=== PATIENT | male | born 2000 | race Caucasian/White ===

== ENCOUNTER → 2022-04-02 12:28 | Outpatient (CLI) | payer OTHER, SELFPAY ==
[2022-04-02 13:29] LABS: COVID19 -Nasal RAPID Negative (Negative)
== END ==
PROVIDERS: Referring Provider Orthopaedic Surgery Orthopaedic Surgery of the Spine; Visit Provider Orthopaedic Surgery Orthopaedic Surgery of the Spine
DX: Z20.822 Contact with and (suspected) exposure to COVID-19 (principal)
CPT/HCPCS: 87635; C9803

== ENCOUNTER 2022-04-04 11:48 | Inpatient (IN) | payer OTHER, SELFPAY ==
[2022-04-02 09:28] VITALS: BMI 28.1
[2022-04-04] VITALS (8 sets, daily range): BP systolic 111–128; BP diastolic 67–90; PULSE 60–93; RESP 8–20; TEMP 36.3–36.6; O2SAT 97–100; BMI 28.1
--- NOTE | 2022-04-04 | DI.RAD.S_ITS ---
PROCEDURE: XR LUMBAR SPINE 2-3V INDICATIONS: L5-S1 MICRO DISCECTOMY TECHNIQUE: Two intraoperative fluoroscopic views of the lumbar spine were acquired. COMPARISON: None. FINDINGS/IMPRESSION: 1. Two intraoperative fluoroscopic images demonstrate a microdiscectomy and disco projecting over the L5-S1 in keeping with the provided history of L5-S1 microdiscectomy. Dictated by: Hugh Garzon M.D. on 04/06/2022 at 14:40 Approved by: Hugh Garzon M.D. on 04/06/2022 at 14:42
[2022-04-04] MEDS: LACTATED RINGERS 1,000 ML 42 ML IV ×2 (12:32→14:33)
--- NOTE | 2022-04-04 12:54 | PM.PREOP ---
Pre-operative Note COVID-19 COVID-19 status: Negative Result date/Date tested (Pos, Neg/Pending): 04/03/22 Criteria for continued procedure: Expected advancement of disease process, Possibility delay results in more complex future surgery or treatment, Increased loss of function, Continuing or worsening of significant or severe pain, Deterioration of the patient's condition or overall health and Delay expected to result in less-positive ultimate med/surg outcome Interval Note History & Physical reviewed/Exam performed by Physician: Yes Changes to H&P: No
[2022-04-04] MEDS: CEFAZOLIN 2 GM/100 ML PREMIX 100 ML IV (13:35)
[2022-04-04] MEDS: BUPIVACAINE 0.25% (PF) 30 ML, EPINEPHrine 0.15 MG INJ (13:55)
--- NOTE | 2022-04-04 14:01 | SUR.OPER ---
Prone on spine table, head in foam head support, padded chest and pelvic supports, gel pad at knees, lower legs supported by pillows; nipples, genitalia and toes free of pressure, arms secured on foam padded arm boards at <90 degrees abduction. Tape over blanket at thigh secured to table.
--- NOTE | 2022-04-04 14:34 | PM.OP.1 ---
Operative Date/Time/Diagnoses Date of procedure: 04/04/22 Time of procedure: 13:00 Pre-op diagnosis: 1. L4-5, L5-S1 disc herniation 2. lumbar radiculopathy Post-op diagnosis: same Procedure & Clinicians Procedure: 1. L4-5, L5-S1 left microdiscectomy 2. Utilization of microsurgical technique and operating microscope Same procedure as scheduled: Yes Indications: Patient has been having chronic back pain and worsening lumbar radiculopathy. Patient failed multiple conservative management with worsening pain weakness and numbness in her lower extremity. Patient has been having difficulty performing activity of daily living. After discussing risks benefits of treatment options, patient elected proceed with surgery. Surgeon: John Barry Wire Spiral Binder: Sapna Menchaca Click Yes if Unassisted: No Anesthesia Type: General Operative Notes Closure Type: primary Specimen(s): none sent Estimated Blood Loss (mL): 5 Blood products transfused: none Procedure in detail: Patient was seen in the preoperative area. Risks and benefits of the surgery was discussed with the patient. Informed consent was obtained from the patient and placed in the chart. Surgical site was marked. Patient was taken to the operative room. General anesthesia was administered. Prophylactic antibiotic was given to the patient less than 30 min before the incision was made. Patient was placed into a prone position on the Kevin table. Patient's back was then prepped and draped in the sterile fashion. Time-out was performed at this time. Using AP and lateral C-arm imaging the interval between L5-S1 was identified and marked on patient's back. A 1 inch incision 1 in from midline was made on the left side. The fascia was incised in line with skin incision. Globus MARS retractors was placed inside the incision and docked onto the L5 lamina. Using microsurgical technique and operating microscope, a L5 laminotomy was performed using a Kerrison rongeur. Liagamentum flavum was resected at the site of the laminotomy. The disc space at L5-S1 was identified. Microdiscectomy was performed by incising the annulus with #11 blade. Microcurettes and pituitary was used to removed herniated disc fragments of disc from the epidural space. Patient's disc herniation was found to be partially calcified indicating a chronic nature of the disc herniation. Due to the partial calcification of the disc, partial resection was performed for the disc herniation due to the location and nature of the disc herniation. After the microdiskectomy was completed, the area medial lateral superior and inferior to the area of the microdiskectomy was inspected and explored using a micro curette. No other impinging structure was identified. The mars retractor was then redirected over the L4-5 level. Using microsurgical technique and operating microscope a left L4-5 microdiskectomy was performed by using the Kerrison rongeur. The lateral recess was decompressed using the Kerrison as well as a micro curette. The wound was then irrigated with sterile normal saline. 40 mg Depo-Medrol was placed into the epidural space. The deep fascia was closed with 1-0 Vicryl. The subcutaneous tissue was closed with 2-0 Vicryl. The skin was closed with skin kristine. Patient tolerated the procedure well. There were no complications. Patient was transferred recovery room in stable condition. Complications: none Post-operative Condition: stable Disposition: PACU Plan for aftercare: Discharge to home
[2022-04-04] MEDS: OXYCODONE/ACETAMINOPHEN 5/325 TABLET 1 TAB PO (15:15)
== END 2022-04-04 15:56 | disposition home or self-care (01) | DRG 520 ==
PROVIDERS: Admitting Provider Orthopaedic Surgery Orthopaedic Surgery of the Spine; Referring Provider Orthopaedic Surgery Orthopaedic Surgery of the Spine; Visit Provider Orthopaedic Surgery Orthopaedic Surgery of the Spine
PROC: 0SB20ZZ Excision of Lumbar Vertebral Disc, Open Approach (ICD-10-PCS; principal; 2022-04-04 13:45)
DX: M51.16 Intervertebral disc disorders with radiculopathy, lumbar region (principal); M51.27 Other intervertebral disc displacement, lumbosacral region; Z20.822 Contact with and (suspected) exposure to COVID-19
CPT/HCPCS: 72100; 76000; J0171; J0690; J2250; J2704; J2920; J3010

== ENCOUNTER → 2023-05-02 13:42 | Outpatient (CLI) | payer OTHER, SELFPAY ==
--- NOTE | 2023-05-02 | DI.ECHO.S_ITS ---
[facility] +---------+ : : [address] : [place] : : : : [id number] : : : : Phone: [phone]---------+ Echocardiogram Report + + :Name: FAROOQ HUMPHREYS Study Date: 05/02/2023 Height: 68 in : :[facility] ReadingLocation: Weight: 190 lb : : Gender: Male BSA: 2.0 m2 : :: 2000 Age: 23 yrs BP: 124/76 mmHg: :Reason For Study: Atrial Premature Depolarization : :Ordering Physician: TY, : :EDYTA Performed By: Regina Ambriz : :Referring: EDYTA CRAWFORD : + + Interpretation Summary 1) Normal left ventricular thickness and size with low normal systolic function (EF 50-55%). 2) Normal right ventricular size and function. 3) No significant valvular abnormalities. 4) No prior Echo available for comparison. Procedure: A two-dimensional transthoracic echocardiogram with color flow and Doppler was performed. The study quality was technically adequate. There is no prior echocardiogram noted for this patient. The patient was in normal sinus rhythm during the exam. Left Ventricle: The left ventricle is normal in size and wall thickness. The ejection fraction is estimated to be 50-55%. There are no focal wall motion abnormalities. Diastolic parameters suggest probable normal left ventricular diastolic function and normal filling pressures. Right Ventricle: The right ventricle is normal in size and function. Atria: The left atrial size is normal. Right atrial size is normal. There is no Doppler evidence for an interatrial shunt. Mitral Valve: The mitral valve is normal. There is no mitral valve stenosis. There is trace mitral regurgitation. Aortic Valve: The aortic valve is trileaflet. The aortic valve opens well. There is no aortic valve stenosis. There is trace aortic regurgitation. Tricuspid Valve: The tricuspid valve is normal. There is no tricuspid stenosis. There is trace tricuspid regurgitation. The right ventricular systolic pressure is estimated to be at least 18 mmHg based on an estimated right atrial pressure of 3 mm Hg. Pulmonic Valve: The pulmonic valve leaflets are thin and pliable; valve motion is normal. There is no pulmonic valvular stenosis. There is trace pulmonic regurgitation. Great Vessels: The aortic root is normal size. The ascending aorta is at the upper limits of normal in size. The pulmonary artery is normal size. The IVC is of normal diameter and collapses greater than 50% with a sniff. This suggests a low right atrial pressure of 3 mm Hg. Pericardium/ Pleura There is no pericardial effusion. MMode/2D Measurements & Calculations LVIDd: 5.5 cm LVOT diam: 2.2 cm LVIDs: 3.4 cm Ao root diam: 3.0 cm FS: 38.2 % asc Aorta Diam: 3.6 cm EPSS: 1.0 cm IVSd: 0.80 cm LVPWd: 0.80 cm LV lozada. diameter/BSA (cm/m^2): 2.8 LV sys. diameter/BSA (cm/m^2): 1.7 LA A2 area: 13.6 cm2 RA long axis: 5.1 cm LA A4 area: 14.4 cm2 RA area: 17.6 cm2 LA length (vol): 4.3 cm RA vol: 51.5 ml LA vol: 38.5 ml RA : 25.8 ml/m2 LA vol index: 19.2 ml/m2 RVD1 (basal): 3.8 cm LVLs ap4: 6.5 cm LVLd ap2: 7.8 cm TAPSE_phl: 1.9 cm LVLs ap2: 6.4 cm Doppler Measurements & Calculations Ao V2 max: 121.7 cm/sec LVOT Max Jamie: 103.0 cm/sec Ao V2 mean: 85.3 cm/sec LV V1 max P.2 mmHg Ao max P.0 mmHg LV V1 VTI: 20.0 cm Ao mean P.0 mmHg SARAH(I,D): 2.8 cm2 Ao V2 VTI: 26.7 cm SARAH(V,D): 3.2 cm2 sev ratio: 0.75 SARAH indexed to BSA (cm^2/m^2): 1.4 MV E max jamie: 83.3 cm/sec TR max jamie: 195.0 cm/sec MV A max jamie: 55.2 cm/sec TR max P.2 mmHg MV E/A: 1.5 PA V2 max: 89.6 cm/sec Med Peak E' Jamie: 10.4 cm/sec PA V2 mean: 63.5 cm/sec E/E' med: 8.0 PA mean P.0 mmHg Lat Peak E' Jamie: 16.7 cm/sec PA pr(Accel): 34.0 mmHg E/E' lat: 5.0 E/e' average: 6.5 MV dec time: 0.18 sec SV(LVOT): 75.8 ml AV VR_phl: 0.84 SARAH(VTI)/BSA_phl: 1.4 Reading Physician:03:29 PM
== END ==
PROVIDERS: Referring Provider Chiropractor; Visit Provider Chiropractor
DX: I49.1 Atrial premature depolarization (principal)
CPT/HCPCS: 93005; 93306